=== PATIENT | female | born 1965 | race Caucasian/White ===

== ENCOUNTER 2019-11-27 15:16 | Emergency (ER) | payer OTHER ==
[~2019-11-27] VITALS: Ht 162.6 cm; Wt 81.6 kg
[2019-11-27 15:19] VITALS: Ht 162.6 cm; Wt 81.6 kg
[2019-11-27 19:59] VITALS: BP 156/84
== END 2019-11-27 19:00 | disposition home or self-care (01) ==
LOC: ED 15:16
DX: M54.5 Low back pain (principal); R20.2 Paresthesia of skin; Z90.49 Acquired absence of other specified parts of digestive tract
CPT/HCPCS: J1885